=== PATIENT | female | born 1985 | race Caucasian/White ===

== ENCOUNTER 2023-01-18 09:32 | Emergency (ER) | payer OTHER, SELFPAY ==
--- NOTE | 2023-01-18 | ECG_ITS ---
Test Reason : R/O LYME Blood Pressure : / mmHG Vent. Rate : 065 BPM Atrial Rate : 065 BPM P-R Int : 166 ms QRS Dur : 076 ms QT Int : 382 ms P-R-T Axes : 031 002 015 degrees QTc Int : 397 ms Normal sinus rhythm Normal ECG No previous ECGs available Referred By: Generic ED Physician Electronically Signed By:PATY SMITH
--- NOTE | ~2023-01-18 | CT_ITS ---
EXAMINATION: CT LUMBAR SPINE WITHOUT CONTRAST CLINICAL INFORMATION: Low back pain. Evaluate for osteomyelitis. History of Lyme. COMPARISON: No relevant prior imaging. TECHNIQUE: Banking Teacher images were obtained. CT imaging of the lumbar spine was performed without contrast. Data was reformatted into multiplanar images at the acquisition workstation. This CT examination was performed using dose optimization techniques as appropriate, variously including the following: *Automated exposure control *Adjustment of mA and/or kV according to patient size (this includes techniques or standardized protocols for targeted exams where dose is matched to indication/reason for exam; i.e. extremities or head) *Use of iterative reconstruction technique DLP; 528 mGy-cm FINDINGS: There is slight grade 1 retrolisthesis of L2 on L3, L3 on L4, and L4 on L5. Vertebral heights are preserved. No acute fracture. Intervertebral disc spaces are maintained at all levels. Canal patency is not well assessed on this examination due to inherent limitations of CT without intrathecal contrast. Grossly no spinal canal compromise. No foraminal nerve root compression. Limited visualization of the retroperitoneal anatomy reveals a few nonobstructive calculi within the calyces of both kidneys. For instance the dominant calculus within a lower pole calyx of the left kidney measures up to 0.2 cm in maximal diameter. CT/CT lumbar spine wo IV con IMPRESSION: There is multilevel degenerative spondylosis of the lumbar spine with slight grade 1 retrolisthesis of L2 on L3, L3 on L4, and L4 on L5. Grossly no spinal canal compromise. No foraminal nerve root compression. Limited visualization of the retroperitoneal anatomy reveals a few nonobstructive calculi within the calyces of both kidneys. For instance the dominant calculus within a lower pole calyx of the left kidney measures up to 0.2 cm in maximal diameter.
[2023-01-18 09:33] VITALS: BP 111/60; PULSE 68; RESP 20; TEMP 36.4; O2SAT 94; BMI 34.0
[2023-01-18 09:59] LABS: MANUAL DIFF FLAG NO
[2023-01-18 10:01] LABS: Basophils Percent Auto 1.1 % (0-2); Eosinophils Absolute Auto 0.1 X10*3/uL (0.0-0.4); Eosinophils Percent Auto 3.3 % (0-4); Hematocrit 39.8 % (37.0-47.0); Hemoglobin 13.6 g/dl (12.0-16.0); Imm Gran Abs Auto 0.01 X10*3/uL (0.00-0.03); Imm Gran Pct Auto 0.3 % (0.0-0.4); Lymphocytes Absolute Auto 0.8 X10*3/uL (1.2-4.9); Lymphocytes Percent Auto 21.1 % (20-40); Mean Corpuscular HGB Conc 34.2 g/dl (31.0-35.0); Mean Corpuscular Hemoglobin 30.9 pg (27.0-33.0); Mean Corpuscular Volume 90.5 fL (80.0-98.0); Mean Platelet Volume 9.7 fL (9.4-12.3); Monocytes Absolute Auto 0.4 X10*3/uL (0.1-1.2); Monocytes Percent Auto 11.6 % (2-11); Neutrophils Absolute Auto 2.3 x10*3/uL (2.0-8.3); Neutrophils Percent Auto 62.6 % (45-73); Platelet Count 203 X10*3/uL (160-400); Red Cell Distribution Width 12.2 % (11.0-16.0); White Blood Count 3.6 X10*3/uL (4.8-10.8)
[2023-01-18 10:02] LABS: Appearance Urine Clear; Color Urine Yellow; Glucose Urine UA Negative (Negative); Leukocyte Esterase Urine Negative (Negative); Nitrite Urine Negative (Negative); Specific Gravity - Urine 1.015 (1.005-1.025); Urine Blood Negative (Negative); Urine Ketones Negative (Negative); Urine Protein Negative (Neg-Trace)
[2023-01-18 10:07] LABS: Bacteria Urine None Seen (None Seen); Hyaline Casts Urine 0-2 /LPF (0-2); RBC Urine 0-2 /HPF (0-2); Squamous Epithelial Cell Urine 0-2 /HPF (0-2); WBC Urine 0-5 /HPF (0-5)
[2023-01-18 10:17] LABS: Anion Gap 12 (12-20); Blood Urea Nitrogen 10 mg/dL (9-16); Calcium 9.2 mg/dL (8.4-10.2); Carbon Dioxide 24 mmol/L (22-29); Chloride 106 mmol/L (96-108); Creatinine Clr Calc Pharmacy 150.9; Estimated Glomerular Filt Rate > 60; Glucose Random 89 mg/dL (60-115); Potassium 4.1 mmol/L (3.3-5.1); Sodium 138 mmol/L (135-145)
[2023-01-18 10:47] LABS: Alanine Aminotransferase 12 U/L (0-31); Albumin Level 3.9 g/dL (3.5-5.0); Alkaline Phosphatase 60 U/L (39-117); Aspartate Amino Transferase 16 U/L (5-31); Bilirubin Direct 0.2 mg/dL (0.0-0.5); Bilirubin Total 0.5 mg/dL (0.0-1.0)
--- NOTE | 2023-01-18 10:55 | PC.NURSE ---
called lab to clarify about labs to see if tick borne illness is an add-on or a separate blood draw- lab staff stated that it can be added on and is not a separate draw, and confirmed receipt of earlier blood draws as well.
[2023-01-18 11:21] LABS: Influenza A PCR NEGATIVE (Negative); Influenza B PCR NEGATIVE (Negative); Resp Syncy Virus RNA Qual PCR NEGATIVE (Negative); SARS COV2 PCR INHOUSE NEGATIVE (Negative)
[2023-01-18 11:31] LABS: Erythrocyte Sedimentation Rate 9 MM/HR (0-20)
[2023-01-18 12:19] LABS: C Reactive Protein 0.42 mg/dL (< or = 0.50)
[2023-01-18 12:33] LABS: HCG Quantitative < 2 mIU/mL
--- NOTE | 2023-01-18 13:08 | ED_ITS ---
HPI - General Adult General Chief complaint: Back Pain/Injury Stated complaint: lower back pain Time Seen by Provider: 01/18/23 10:00 Source: patient, family, RN notes reviewed and old records reviewed Mode of arrival: ambulatory History of Present Illness HPI narrative: 37-year-old female with a past medical history of Lyme disease, recently finished 28 day course of Amoxicillin on 01/12/23, presenting to the ED today complaining of recurrent headache, night sweats, myalgias, and low back pain beginning on Friday, however denies headache at present. 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 Reports symptoms briefly resolved. Denies known fever, vision change, nausea/vomiting, abdominal pain, incontinence/retention, recent travel, sick contacts, injury/fall Onset (ago): day(s) Related Data Allergies Allergy/AdvReac Type Severity Reaction Status Date / Time meperidine [From Demerol] Allergy Vomiting Verified 01/18/23 09:37 Review of Systems 2 Review of Systems: Constitutional: No Fever, + Chills, No Fatigue, No Malaise,+night sweats ENT/Mouth: No Ear Pain, No Hoarseness, No sore throat, No Rhinorrhea, No Swallowing Difficulty Eyes: No Eye Pain, No Swelling, No Redness, No Vision Changes Cardiovascular: No Chest Pain, No SOB, No Edema, No Palpitations Respiratory: No Cough, No Sputum, No Dyspnea Gastrointestinal: No Nausea, No Vomiting, No Diarrhea, No Constipation, No Abdominal pain Genitourinary: No irregular bleeding, No Dysuria, No Urinary Frequency, No Hematuria, No Urinary Incontinence/retention, No Flank Pain, Musculoskeletal: + joint pain, + Myalgias, No Joint Swelling Skin: No Skin Lesions, No rash Neuro: No Weakness, No Numbness, No Paresthesias, No Loss of Consciousness, No Dizziness, + Headache (resolved at present) Yes all other systems are reviewed and are negative Constitutional: Constitutional: Reports as per HPI Neurologic: Denies Abnormal speech present [facility] Past Medical History Attestation statement: The following information was validated with the patient. Source: old records reviewed Social History Social History Alcohol intake: never Smoked in Last 30 Days: No Use of substances other than those prescribed or required for medical reasons: No Advance Directives: No Advance Directives Information Provided: No Physical Exam ED Vital Signs: Vital Signs - 24 hr 01/18/23 09:33 01/18/23 14:19 Temperature 97.6 F 98.2 F Pulse Rate 68 80 Respiratory Rate 20 16 Blood Pressure 111/60 97/58 L Pulse Oximetry 94 99 Oxygen Delivery Method Room Air Room Air BMI result Body Mass Index 34.0 Const General: cooperative, healthy appearing, no acute distress, alert and awake Orientation/consciousness: patient oriented x3 Limitations: no limitations HENMT Head: Yes normal to inspection and Yes atraumatic Ears: hearing grossly normal bilaterally and external ears normal General nose exam: Normal external nose present Face and sinus: Yes normal facial exam Mouth: Normal oral and palatal mucosa present Throat: Yes posterior oropharynx normal, Yes tonsils normal and Yes uvula midline Eyes General: appearance normal, both eyes and all related structures Pupils: Equal, round and reactive pupils present EOM: EOMs intact bilaterally Neck Neck: Yes normal visual inspection, Yes no meningeal signs, No anterior neck swelling and No torticollis Resp Effort & Inspection: normal respiratory effort and no respiratory distress Auscultation: clear to auscultation bilaterally Cardio Rate: regular rate Heart sounds: S1 normal heart sound present and S2 normal heart sound present GI Inspection: Yes normal to inspection Palpation (GI): Soft to palpation, nontender, no guarding and not rigid General: Yes no CVA tenderness Back/Spine/Pelvis Other: No midline cervical/thoracic/lumbar spinous tenderness/step-off or deformity. + mild bilateral lumbar MSK tenderness to palpation reproducing subjective complaint. No rash/erythema or ecchymosis Back: no CVA tenderness Skin Rashes: no rashes Wounds: no wounds Neuro Other: Strength intact throughout. No saddle anesthesia. Sensation intact to light touch. Neurovascular intact distally General: patient oriented x3, gait normal, tone normal, moves all extremities, no meningeal signs, no focal motor deficits and CN's II-XI intact bilaterally Cranial nerves: Yes CN's II-XII intact bilaterally and Yes Equal, round and reactive pupils present Cognition (Neuro): normal cognition Speech: No Abnormal speech present Gait exam (Neuro): Normal gait present Motor exam (neuro): 5/5 motor strength present throughout and no tremor noted Extrem General: Yes normal to inspection Course Course Course Narrative: -mild leukopenia 3.6. Labs otherwise reassuring including ESR/CRP WNL -UA negative. Influenza/RSV/flu negative > case discussed with infectious disease Dr. Iraheta who recommended CT or MRI of spine to rule out osteomyelitis, patient can follow-up in her office 142--CT lumbar spine wo IV con IMPRESSION: There is multilevel degenerative spondylosis of the lumbar spine with slight grade 1 retrolisthesis of L2 on L3, L3 on L4, and L4 on L5. Grossly no spinal canal compromise. No foraminal nerve root compression. Limited visualization of the retroperitoneal anatomy reveals a few nonobstructive calculi within the calyces of both kidneys. For instance the dominant calculus within a lower pole calyx of the left kidney measures up to 0.2 cm in maximal diameter. > Results discussed with patient and spouse, recommended close Infectious Disease and PCP follow-up. Offered additional pain control however patient breast-feeding and deferred. discussed worrisome signs and symptoms and strict return precautions, and when to return to the emergency department. They verbalized understanding and feel safe for discharge at this time. Medical Decision Making Medical Decision Making MDM Narrative: 37-year-old female with a past medical history of Lyme disease, recently finished 28 day course of Amoxicillin on 01/12/23, presenting to the ED today complaining of recurrent headache, night sweats, myalgias, and low back pain beginning on Friday, however denies headache at present. On exam vital signs stable, NAD, nontoxic appearing, no midline spinous tenderness throughout the red flag symptoms. No focal neuro deficits. Ambulating with steady gait. Concern for viral syndrome vs MSK back pain vs chronic Lyme disease. Low suspicion for recurrent/untreated Lyme, meningitis/encephalitis, osteomyelitis, cauda equina/cord compression. Case discussed with ED attending, Dr. Patterson plan: EKG, labs, Lyme titer, tick-borne illness, ESR/CRP, consult infectious disease Do not feel re-treating as necessary at this time Please refer to course for remaining clinical decision making, interpretation of labs/imaging results, and discussions with consultants and/or family members. Differential Diagnosis Differential Diagnoses: The differential diagnosis associated with the presentation includes As above Admission/Observation Consideration of admission/observation: Escalation of care including admission/observation considered Consult Healthcare Provider Management of the patient was discussed with: Habilitation Assistant (Infectious disease) Lab Data MDM Lab Attestation statement: I reviewed the patient's lab results. 01/18/23 09:54 01/18/23 09:54 Labs: Lab Results 01/18/23 01/18/23 Range/Units 09:54 10:21 WBC 3.6 L (4.8-10.8) X10*3/uL RBC 4.40 (4.20-5.50) X10*6/uL Hgb 13.6 (12.0-16.0) g/dl Hct 39.8 (37.0-47.0) % MCV 90.5 (80.0-98.0) fL MCH 30.9 (27.0-33.0) pg MCHC 34.2 (31.0-35.0) g/dl RDW 12.2 (11.0-16.0) % Plt Count 203 (160-400) X10*3/uL MPV 9.7 (9.4-12.3) fL Immature Gran % (Auto) 0.3 (0.0-0.4) % Neut % (Auto) 62.6 (45-73) % Lymph % (Auto) 21.1 (20-40) % [place] % (Auto) 11.6 H (2-11) % Eos % (Auto) 3.3 (0-4) % Baso % (Auto) 1.1 (0-2) % Lymph # (Auto) 0.8 L (1.2-4.9) X10*3/uL [place] # (Auto) 0.4 (0.1-1.2) X10*3/uL Eos # (Auto) 0.1 (0.0-0.4) X10*3/uL Baso # (Auto) 0.0 (0.0-0.2) X10*3/uL Abs Immat Gran (auto) 0.01 (0.00-0.03) X10*3/uL Absolute Neuts (auto) 2.3 (2.0-8.3) x10*3/uL Absolute Nucleated RBC 0.000 (0.0-0.012) X10*3/uL Nucleated RBC % (auto) 0.0 (0.0-0.2) /100WBC ESR 9 (0-20) MM/HR Sodium 138 (135-145) mmol/L Potassium 4.1 (3.3-5.1) mmol/L Chloride 106 (96-108) mmol/L Carbon Dioxide 24 (22-29) mmol/L Anion Gap 12 (12-20) BUN 10 (9-16) mg/dL Creatinine 0.65 (0.5-1.4) mg/dL Estim Creat Clear Calc 150.9 Estimated GFR > 60 Random Glucose 89 (60-115) mg/dL Calcium 9.2 (8.4-10.2) mg/dL Total Bilirubin 0.5 (0.0-1.0) mg/dL Direct Bilirubin 0.2 (0.0-0.5) mg/dL AST 16 (5-31) U/L ALT 12 (0-31) U/L Alkaline Phosphatase 60 (39-117) U/L C-Reactive Protein 0.42 (< or = 0.50) mg/dL Total Protein 7.0 (6.5-8.0) g/dL Albumin 3.9 (3.5-5.0) g/dL Beta HCG, Quant < 2 mIU/mL Urine Color Yellow Urine Appearance Clear Urine pH 6.0 (5.0-9.0) Ur Specific [place] 1.015 (1.005-1.025) Urine Protein Negative (Neg-Trace) mg/dL Urine Glucose (UA) Negative (Negative) mg/dL Urine Ketones Negative (Negative) mg/dL Urine Blood Negative (Negative) Urine Nitrite Negative (Negative) Ur Leukocyte Esterase Negative (Negative) Urine RBC 0-2 (0-2) /HPF Urine WBC 0-5 (0-5) /HPF Ur Squamous Epith Cells 0-2 (0-2) /HPF Urine Bacteria None Seen (None Seen) Hyaline Casts 0-2 (0-2) /LPF Influenza Type A (PCR) NEGATIVE (Negative) Influenza Type B (PCR) NEGATIVE (Negative) RSV RNA Qual (PCR) NEGATIVE (Negative) SARS-CoV-2 RNA (RT-PCR) NEGATIVE (Negative) Independent Interpretation I performed an independent interpretation of an: EKG (My interpretation EKG is normal sinus rhythm at a rate of 65. QRS 76. QTC 397. No STEMI. No others to compare) Radiology Impression Discussion of test interpretation with radiology: I have reviewed the radiologist's reading. Independent Historian Clinical information obtained from an independent historian. History obtained from or confirmed by: Spouse External Record Review External record reviewed: Inpatient record, Office record, Outpatient record, Prior outpatient labs, Prior outpatient radiology, Primary care record and Outside ED record Tests considered The following testing was considered but not selected: As above Prescription Management I considered prescription management with: Antibiotic Chronic Conditions Patient?s care impacted by: Other (lyme dz) Discharge Plan Discharge Clinical Impression: Low back pain, Myalgia Patient Disposition: Home, Self-Care Instructions: Acute Low Back Pain (ED), Musculoskeletal Pain (ED) Additional Instructions: Your blood work was reassuring Your CT scan shows degenerative changes of her back. You do have some stones in both of her kidneys. Please follow-up with infectious disease as well as her primary care doctor Take Tylenol/ Motrin as needed for headache/body aches Is symptoms persist or worsen you have fever/chills, nausea/vomiting or weakness return to the ED Referrals: TALISHA IRAHETA MD [Physician] - Sharda Blood DNP [Primary Care Provider] - Interventions: ED Discharge Assessment Last Done: 01/18/23 14:37 Discharge Date/Time: 01/18/23 14:38
[2023-01-18 14:19] VITALS: BP 97/58; PULSE 80; RESP 16; TEMP 36.8; O2SAT 99
[2023-01-21 04:42] LABS: Lyme Blot >10.00 index
[2023-01-21 06:39] LABS: A. Phagocytphilium DNA,RT-PCR NOT DETECTED (NOT DETECTED); Babesia Microti DNA, RT-PCR NOT DETECTED (NOT DETECTED); Borrelia Miyamotoi,DNA RT-PCR NOT DETECTED (NOT DETECTED); E.Chaffeensis DNA RT-PCR NOT DETECTED (NOT DETECTED); Lyme(Borrelia ssp)DNA RT-PCR NOT DETECTED (NOT DETECTED)
[2023-01-25 11:06] LABS: Lyme Abs Screen POSITIVE
[2023-01-27 14:08] LABS: 18 KD (IgG) Band NON-REACTIVE; 23 KD (IgG) Band NON-REACTIVE; 23 KD (IgM) Band REACTIVE; 28 KD (IgG) Band NON-REACTIVE; 30 KD (IgG) Band NON-REACTIVE; 39 KD (IgM) Band NON-REACTIVE; 39KD (IgG) Band NON-REACTIVE; 41 KD (IgM) Band NON-REACTIVE; 41KD (IgG) Band REACTIVE; 45 KD (IgG) Band NON-REACTIVE; 58 KD (IgG) Band REACTIVE; 66 KD (IgG) Band NON-REACTIVE; 93 KD (IgG) Band NON-REACTIVE; Lyme IgG Blot Interp NEGATIVE (NEGATIVE); Lyme IgM Blot Interp NEGATIVE (NEGATIVE)
== END 2023-01-18 14:38 | disposition home or self-care (01) ==
PROVIDERS: Physician Assistant; Emergency Provider Emergency Medicine Emergency Medical Services; PCP Registered Nurse
DX: M54.50 Low back pain, unspecified (principal); M79.10 Myalgia, unspecified site; Z20.822 Contact with and (suspected) exposure to COVID-19; Z20.828 Contact with and (suspected) exposure to other viral communicable diseases; N20.0 Calculus of kidney; A69.20 Lyme disease, unspecified; Z79.2 Long term (current) use of antibiotics
CPT/HCPCS: 0241U; 36415; 72131; 80048; 80076; 81001; 84702; 85025; 85652; 86140; 86617; 86618; 87468; 87469; 87478; 87484; 87798; 93005; 99284; 99285

== ENCOUNTER 2023-01-29 13:28 | Outpatient (AMB) | payer OTHER, SELFPAY ==
--- NOTE | 2023-01-29 13:29 | MHC.OFFVIS ---
Intake Vital Signs 01/29/23 13:30 Height 5 ft 9 in Weight 233 lb BMI 34.4 BP 111/59 L Blood Pressure Location Rt brachial Position Sitting Pulse 72 Pulse Source Pulse Oximeter Temp 98.8 F Temp Source Oral Pulse Oximetry (%) 99 Intake Visit Reasons: Ref.[facility],[place] disease Allergies meperidine [From Demerol] Allergy (Verified 01/29/23 13:37) Vomiting HPI Ref.[facility],[employer] [place] disease HPI Details She reports being tired and having myalgias and arthralgias and was given Lyme test. Lyme test is negative. She has no fever or chills at this time. She received po antibiotics Now she has some fatigue. [facility] Medical History (Updated 01/31/23 @ 16:29 by Sasha Mckeon MD) Fatigue Social History Alcohol intake: never Review of Systems Const All systems reviewed & are unremarkable except as noted in HPI and below Physical Exam Vital Signs: Last Vital Signs Temp 98.8 F 01/29/23 13:30 Pulse 72 01/29/23 13:30 BP 111/59 L 01/29/23 13:30 Pulse Ox 99 01/29/23 13:30 BMI result Body Mass Index 34.4 Const General: cooperative Orientation/consciousness: patient oriented x3 HEENT Head: Yes normal to inspection Mouth: Normal oral and palatal mucosa present Eyes General: appearance normal, both eyes and all related structures Pupils: Equal, round and reactive pupils present Resp Effort & Inspection: normal respiratory effort Cardio Rate: regular rate Rhythm: regular rhythm GI Palpation (GI): Soft to palpation and nontender General: Yes no CVA tenderness Back/Spine/Pelvis Back: no CVA tenderness Skin General skin exam: no rashes or lesions noted Neuro General: patient oriented x3 Cranial nerves: Yes CN's II-XII intact bilaterally and Yes Equal, round and reactive pupils present Extrem General: Yes normal to inspection Psych Appearance: grossly normal Assessment & Plan Assessment & Plan (1) Fatigue: Comment: She has no symptoms of Lyme,just fatigue. Code(s): R53.83 - Other fatigue Plan Follow PCP other causes fatigue. No further antibiotics Coding Level of Care Code New Pt Level 3 (53878) Diagnoses Fatigue R53.83
[2023-01-29 13:30] VITALS: BP 111/59; PULSE 72; TEMP 37.1; O2SAT 99; BMI 34.4
== END 2023-01-29 14:45 | disposition home or self-care (01) ==
PROVIDERS: PCP Registered Nurse; Visit Provider Internal Medicine
DX: R53.83 Other fatigue (principal)
CPT/HCPCS: 99203

== ENCOUNTER → 2023-01-29 13:28 | Outpatient (BNVA) | payer OTHER, SELFPAY | PROVIDERS: PCP Registered Nurse; Visit Provider Internal Medicine ==